=== PATIENT | female | born 1960 | race Caucasian/White ===

== ENCOUNTER 2019-12-02 12:50 | Outpatient (CLI) | payer OTHER, SELFPAY ==
--- NOTE | ~2019-12-02 | MR_ITS ---
EXAMINATION: MR lumbar spine wo con DATE: 12/02/2019 13:39 INDICATION: Dorsalgia. TECHNIQUE: Magnetic resonance imaging (MRI) of the lumbar spine was performed without intravenous con trast. Sequences included sagittal T2-weighted FSE, sagittal T2-weighted FS FSE, sagittal T1-weighted FSE, and axial T2-weighted FSE. COMPARISON: None FINDINGS: Bone alignment is normal. There is a chronic burst fracture of L1 superior endplate with 3/ 5 loss of height centrally and retropulsion of bone 2 mm into central spinal canal. There are changes of anterior fusion procedures at L3-L4 and L4-L5 with discectomies and interbody devices. There are changes of L4 laminectomy. Intervertebral disc heights are normal. The distal spinal cord signal inte nsity is normal. The conus medullaris is at T12-L1. The following disc levels are specifically discus sed: T12-L1: The disc is bulging. There is no facet joint osteoarthritis. There is mild bilateral neural f oraminal stenosis. There is mild central canal stenosis. L1-L2: The disc is bulging. There is mild bilateral facet joint osteoarthritis. There is mild bilater al neural foraminal stenosis. There is mild central canal stenosis. L2-L3: The disc is bulging. There is mild bilateral facet joint osteoarthritis. There is mild bilater al neural foraminal stenosis. There is mild central canal stenosis. L3-L4: There is mild bilateral facet joint osteoarthritis. There is no neural foraminal stenosis. The re is no central canal stenosis. L4-L5: There is no facet joint hypertrophy. There is no neural foraminal stenosis. There is no centra l canal stenosis. L5-S1: The disc does not extend beyond the endplate margin. There is moderate right and severe left f acet joint osteoarthritis. There is mild left neural foraminal stenosis. There is no central canal st enosis. IMPRESSION: 1. Mild lumbar spondylosis. 2. Anterior fusion procedures at L3-L4 and L4-L5. Reviewed, dictated and finalized at location A. GE OPERATOR
== END 2019-12-02 12:51 | disposition home or self-care (01) ==
LOC: ANHIMG 12:53
PROVIDERS: Visit Provider Internal Medicine
DX: M47.816 Spondylosis without myelopathy or radiculopathy, lumbar region (principal); M54.2 Cervicalgia; Z98.1 Arthrodesis status
CPT/HCPCS: 72148